=== PATIENT | male | born 1950 | race Caucasian/White ===

== ENCOUNTER 2018-03-29 10:59 | Inpatient (IN) | payer OTHER ==
[~2018-03-29] VITALS: Ht 172.7 cm; Wt 106.7 kg
[2018-03-29] MEDS ORDERED: SODIUM CHLORIDE FLUSH 10ML SYR IVF ONE (11:30)
[2018-03-29 11:42] LABS: BASOPHILS # (AUTO) 0.03 x10^3/uL (0-0.1); BASOPHILS % (AUTO) 1 % (0-1); EOSINOPHILS # (AUTO) 0.22 x10^3/uL (0-0.4); EOSINOPHILS % (AUTO) 3 % (1-7); LYMPHOCYTES # (AUTO) 1.67 x10^3/uL (1-3.4); LYMPHOCYTES % (AUTO) 25 % (22-44); MD NO; MEAN CORPUSCULAR HEMOGLOBIN 32.6 pg (27.5-34.5); MEAN CORPUSCULAR HGB CONC 34.7 g/dL (33.2-36.2); MEAN PLATELET VOLUME 8.5 fL (7.4-10.4); MONOCYTES # (AUTO) 0.61 x10^3/uL (0.2-0.8); MONOCYTES % (AUTO) 9 % (2-9); NEUTROPHILS # (AUTO) 4.29 x10^3/uL (1.8-6.8); NEUTROPHILS % (AUTO) 63 % (42-75); PLATELET COUNT 117 x10^3/uL (130-400); RED BLOOD COUNT 4.05 x10^6/uL (4.38-5.82); RED CELL DISTRIBUTION WIDTH 14.8 % (9.4-14.8)
[2018-03-29 11:58] LABS: ALBUMIN 3.1 g/dL (3.4-5.0); ANION GAP 8 mmol/L (5-15); CALCIUM 9.4 mg/dL (8.5-10.1); CHLORIDE 112 mmol/L (98-107); CREATININE 0.85 mg/dL (0.7-1.3)
[2018-03-29 12:05] LABS: INTERNATIONAL NORMALIZED RATIO 1.11 (0.93-1.1); PROTHROMBIN TIME 11.5 Seconds (9.6-11.5)
[2018-03-29] MEDS ORDERED: folic acid PO (12:15)
[2018-03-29] MEDS ORDERED: AMLO1TAB80 PO (12:15)
[2018-03-29] MEDS ORDERED: MULT-224 PO (12:15)
[2018-03-29] MEDS ORDERED: THIA250T4 PO (12:15)
[2018-03-29] MEDS ORDERED: slow mag PO (12:15)
[2018-03-29] MEDS ORDERED: NADO20TA PO (12:15)
[2018-03-29] MEDS ORDERED: [UNRECOGNIZED DRUG - OTHER] PO (12:15)
[2018-03-29] MEDS ORDERED: CHOL5000 PO (12:15)
[2018-03-29] MEDS ORDERED: NAPR-850 PO (12:15)
[2018-03-29] MEDS ORDERED: ACET-1600 PO (12:16)
[2018-03-29] MEDS ORDERED: hydrALAzine 20 MG/ML, 1ML IVPush PRN (13:00)
[2018-03-29] MEDS ORDERED: ONDANSETRON 2MG/ML, 2ML IVPush PRN (13:00)
[2018-03-29] MEDS ORDERED: ENALAPRILAT 1.25 MG/ML, 2ML IVPush PRN (13:00)
[2018-03-29] MEDS ORDERED: LABETALOL 5MG/ML, 20ML IVPush PRN (13:00)
[2018-03-29] MEDS ORDERED: PROMETHAZINE 25 MG/ML, 1ML IM PRN (13:00)
[2018-03-29] MEDS ORDERED: METOCLOPRAMIDE 5 MG/ML, 2ML IVPush PRN (13:00)
[2018-03-29] MEDS ORDERED: ONDANSETRON ODT 4 MG PO PRN (13:00)
[2018-03-29 13:48] VITALS: BP_SYST 120; BP_SYST 20; BP_DIAS 69
[2018-03-29] MEDS: NS + 20MEQ KCL 1,000 ML IV SCH (18:18)
[2018-03-29] MEDS ORDERED: GOLYTELY 4,000ML ORAL.SOL PO ONE (20:00)
[2018-03-29] MEDS: ACETAMINOPHEN 500 MG TABLET PO SCH (20:20)
[2018-03-29 20:25] VITALS: BP 126/77
[2018-03-29] MEDS: NADOLOL 20 MG HOMEMEDPO SCH (20:38)
[2018-03-29] MEDS ORDERED: OLMESARTAN MED HOMEMEDPO SCH (21:00)
[2018-03-29] MEDS ORDERED: AMLODIPINE BES HOMEMEDPO SCH (21:00)
[2018-03-29] MEDS ORDERED: CHOLECALCIFEROL 1,000 UNIT TABLET PO SCH (21:00)
[2018-03-30] MEDS: NS + 20MEQ KCL 1,000 ML IV SCH ×2 (00:08→08:25)
[2018-03-30 01:35] VITALS: BP 124/72
[2018-03-30 02:23] LABS: MEAN CORPUSCULAR HEMOGLOBIN 33.1 pg (27.5-34.5); MEAN CORPUSCULAR VOLUME 94.4 fL (81-97); RED BLOOD COUNT 3.46 x10^6/uL (4.38-5.82); RED CELL DISTRIBUTION WIDTH 14.8 % (9.4-14.8)
[2018-03-30 02:30] LABS: ALANINE AMINOTRANSFERASE 24 U/L (12-78); ALBUMIN 2.9 g/dL (3.4-5.0); ANION GAP 7 mmol/L (5-15); CALCIUM 9.3 mg/dL (8.5-10.1); CHLORIDE 115 mmol/L (98-107)
[2018-03-30 02:32] LABS: ALKALINE PHOSPHATASE 66 U/L (45-117); BILIRUBIN,TOTAL 1.2 mg/dL (0.2-1.0); TOTAL PROTEIN 5.5 g/dL (6.4-8.2)
[2018-03-30 02:35] LABS: BASOPHILS # (AUTO) 0.01 x10^3/uL (0-0.1); BASOPHILS % (AUTO) 0 % (0-1); EOSINOPHILS # (AUTO) 0.19 x10^3/uL (0-0.4); EOSINOPHILS % (AUTO) 4 % (1-7); LYMPHOCYTES # (AUTO) 1.59 x10^3/uL (1-3.4); LYMPHOCYTES % (AUTO) 34 % (22-44); MD SCAN; MEAN PLATELET VOLUME 8.4 fL (7.4-10.4); MONOCYTES # (AUTO) 0.39 x10^3/uL (0.2-0.8); MONOCYTES % (AUTO) 8 % (2-9); NEUTROPHILS # (AUTO) 2.49 x10^3/uL (1.8-6.8); NEUTROPHILS % (AUTO) 53 % (42-75); PLATELET COUNT 79 x10^3/uL (130-400)
[2018-03-30] MEDS ORDERED: GOLYTELY 4,000ML ORAL.SOL PO ONE (06:00)
[2018-03-30 06:47] VITALS: BP 144/82
[2018-03-30] MEDS ORDERED: PANTOPRAZOLE 40 MG IV IVPush SCH (07:30)
[2018-03-30] MEDS: NADOLOL 20 MG HOMEMEDPO SCH ×2 (08:40→09:36)
[2018-03-30] MEDS: ACETAMINOPHEN 500 MG TABLET PO SCH (08:40)
[2018-03-30] MEDS ORDERED: THIAMINE 100MG TABLET PO SCH (09:00)
[2018-03-30] MEDS ORDERED: MULTIVITAMIN 1 TABLET PO SCH (09:00)
[2018-03-30] MEDS ORDERED: FENTANYL PF 100 MCG/2ML ONE (09:55)
[2018-03-30] MEDS ORDERED: MIDAZOLAM 1 MG/ML, 5ML ONE (09:55)
[2018-03-30] MEDS ORDERED: EPINEPHRINE SYRINGE 0.1 MG/ML, 10ML ONE (12:34)
[2018-03-30 14:18] VITALS: BP 130/61
== END 2018-03-30 18:09 | disposition home or self-care (01) | DRG 920 ==
LOC: ED 12:34 → EDIP 12:35 → ED 12:46 → 3NE 13:42
PROVIDERS: ADMIT Hospitalist; ATTEND Hospitalist
PROC: 0DBL8ZZ Excision of Transverse Colon, Via Natural or Artificial Opening Endoscopic (ICD-10-PCS; 2018-03-30)
PROC: 0DBH8ZZ Excision of Cecum, Via Natural or Artificial Opening Endoscopic (ICD-10-PCS; 2018-03-30)
PROC: 0W3P8ZZ Control Bleeding in Gastrointestinal Tract, Via Natural or Artificial Opening Endoscopic (ICD-10-PCS; 2018-03-30)
PROC: 3E0H8GC Introduction of Other Therapeutic Substance into Lower GI, Via Natural or Artificial Opening Endoscopic (ICD-10-PCS; 2018-03-30)
PROC: 0DBK8ZZ Excision of Ascending Colon, Via Natural or Artificial Opening Endoscopic (ICD-10-PCS; principal; 2018-03-30 11:00)
DX: K91.840 Postprocedural hemorrhage of a digestive system organ or structure following a digestive system procedure (principal); K76.6 Portal hypertension; K63.3 Ulcer of intestine; D69.6 Thrombocytopenia, unspecified; D64.9 Anemia, unspecified; E66.9 Obesity, unspecified; I10 Essential (primary) hypertension; I86.8 Varicose veins of other specified sites; K57.30 Diverticulosis of large intestine without perforation or abscess without bleeding; K63.5 Polyp of colon; K64.4 Residual hemorrhoidal skin tags; K55.20 Angiodysplasia of colon without hemorrhage; N40.0 Benign prostatic hyperplasia without lower urinary tract symptoms; Y83.8 Other surgical procedures as the cause of abnormal reaction of the patient, or of later complication, without mention of misadventure at the time of the procedure; Y92.89 Other specified places as the place of occurrence of the external cause; Z80.0 Family history of malignant neoplasm of digestive organs; Z86.010 Personal history of colon polyps; Z68.35 Body mass index [BMI] 35.0-35.9, adult
CPT/HCPCS: 36415; 80048; 80053; 82040; 83735; 84100; 85014; 85018; 85025; 85610; 85730; 86850; 86900; 88305; 99152; 99153; 99285; J2250; J3010; J3480; C9113

== ENCOUNTER 2018-10-28 12:42 | Inpatient (IN) | payer OTHER ==
[~2018-10-28] VITALS: Ht 172.7 cm; Wt 101.6 kg
[~2018-10-28 12:42] MED LIST: ACET-1600 PO; AMLO1TAB80 PO; CHOL5000 PO; MULT-224 PO; NADO20TA PO; NAPR-850 PO; THIA250T4 PO; [UNRECOGNIZED DRUG - OTHER] PO; folic acid PO; slow mag PO
[2018-10-28] MEDS ORDERED: SODIUM CHLORIDE FLUSH 10ML SYR IVF ONE ×2 (13:00→15:30)
[2018-10-28 13:30] LABS: INTERNATIONAL NORMALIZED RATIO 1.17 (0.93-1.1); PROTHROMBIN TIME 12.3 Seconds (9.6-11.5)
[2018-10-28 13:31] LABS: ALANINE AMINOTRANSFERASE 28 U/L (12-78); ALBUMIN 3.2 g/dL (3.4-5.0); ANION GAP 6 mmol/L (5-15); CALCIUM 9.7 mg/dL (8.5-10.1); CHLORIDE 111 mmol/L (98-107)
[2018-10-28 13:32] LABS: MEAN CORPUSCULAR HEMOGLOBIN 32.3 pg (27.5-34.5); MEAN CORPUSCULAR HGB CONC 34.9 g/dL (33.2-36.2); MEAN CORPUSCULAR VOLUME 92.6 fL (81-97); MEAN PLATELET VOLUME 8.8 fL (7.4-10.4); PLATELET COUNT 122 x10^3/uL (130-400); RED BLOOD COUNT 3.97 x10^6/uL (4.38-5.82); RED CELL DISTRIBUTION WIDTH 14.6 % (9.4-14.8)
[2018-10-28 13:33] LABS: ALKALINE PHOSPHATASE 71 U/L (45-117); BASOPHILS # (AUTO) 0.03 x10^3/uL (0-0.1); BASOPHILS % (AUTO) 0 % (0-1); BILIRUBIN,TOTAL 1.4 mg/dL (0.2-1.0); EOSINOPHILS % (AUTO) 2 % (1-7); LYMPHOCYTES # (AUTO) 1.84 x10^3/uL (1-3.4); LYMPHOCYTES % (AUTO) 22 % (22-44); MD NO; MONOCYTES # (AUTO) 0.84 x10^3/uL (0.2-0.8); MONOCYTES % (AUTO) 10 % (2-9); NEUTROPHILS # (AUTO) 5.55 x10^3/uL (1.8-6.8); NEUTROPHILS % (AUTO) 66 % (42-75); TOTAL PROTEIN 6.2 g/dL (6.4-8.2)
[2018-10-28] MEDS ORDERED: PANTOPRAZOLE 80 MG in SODIUM CHLORIDE 0.9% 100 ML IV SCH (15:02)
[2018-10-28] MEDS ORDERED: PANTOPRAZOLE 80 MG in SODIUM CHLORIDE 0.9% 50 ML IVPB ONE (15:02)
[2018-10-28] MEDS ORDERED: OCTREOTIDE 500 MCG in SODIUM CHLORIDE 0.9% 249 ML IV PRN (15:20)
[2018-10-28] MEDS ORDERED: OCTREOTIDE 100MCG/ML, 1ML (0.1MG/ML) IV ONE (15:30)
[2018-10-28] MEDS ORDERED: SODIUM CHLORIDE 0.9% 1,000ML IVBOLUS ONE (15:30)
[2018-10-28] MEDS ORDERED: CEFTRIAXONE PMX 1GM/50ML 50 ML IV ONE (15:30)
[2018-10-28] MEDS ORDERED: LOVA20TA2 PO (16:08)
[2018-10-28 16:30] VITALS: BP 153/77
[2018-10-28] MEDS ORDERED: ENALAPRILAT 1.25 MG/ML, 2ML IVPush PRN (16:30)
[2018-10-28] MEDS: PANTOPRAZOLE 80 MG in SODIUM CHLORIDE 0.9% 100 ML IV SCH (16:30)
[2018-10-28] MEDS ORDERED: POLYETHYLENE GLYCOL 17 GM PACKET PO PRN (16:30)
[2018-10-28] MEDS ORDERED: ONDANSETRON ODT 4 MG PO PRN (16:30)
[2018-10-28] MEDS ORDERED: hydrALAzine 20 MG/ML, 1ML IVPush PRN (16:30)
[2018-10-28] MEDS ORDERED: BISACODYL 10 MG SUPP PR PRN (16:30)
[2018-10-28] MEDS ORDERED: DOCUSATE 100 MG CAPSULE PO PRN (16:30)
[2018-10-28] MEDS ORDERED: ONDANSETRON 2MG/ML, 2ML IVPush PRN (16:30)
[2018-10-28] MEDS ORDERED: CEFTRIAXONE PMX 1GM/50ML 50 ML IV SCH (16:30)
[2018-10-28] MEDS ORDERED: OCTREOTIDE 500 MCG in SODIUM CHLORIDE 0.9% 249 ML IV SCH (16:30)
[2018-10-28] MEDS ORDERED: ACETAMINOPHEN 325 MG TABLET PO PRN (16:30)
[2018-10-28 16:39] LABS: MICROSCOPIC NOT IND
[2018-10-28 16:50] VITALS: BP 155/80
[2018-10-28 16:54] LABS: CULTURE INDICATED? NO
[2018-10-28 20:00] VITALS: BP 130/75
[2018-10-29] MEDS: PANTOPRAZOLE 80 MG in SODIUM CHLORIDE 0.9% 100 ML IV SCH ×2 (00:51→14:30)
[2018-10-29 01:07] VITALS: BP 132/76
[2018-10-29 05:59] LABS: CHLORIDE 113 mmol/L (98-107)
[2018-10-29 06:13] LABS: BASOPHILS # (AUTO) 0.02 x10^3/uL (0-0.1); BASOPHILS % (AUTO) 1 % (0-1); EOSINOPHILS # (AUTO) 0.12 x10^3/uL (0-0.4); EOSINOPHILS % (AUTO) 4 % (1-7); LYMPHOCYTES # (AUTO) 1.03 x10^3/uL (1-3.4); LYMPHOCYTES % (AUTO) 30 % (22-44); MD SCAN; MEAN CORPUSCULAR HEMOGLOBIN 31.5 pg (27.5-34.5); MEAN CORPUSCULAR HGB CONC 34.1 g/dL (33.2-36.2); MEAN CORPUSCULAR VOLUME 92.4 fL (81-97); MEAN PLATELET VOLUME 8.5 fL (7.4-10.4); MONOCYTES # (AUTO) 0.31 x10^3/uL (0.2-0.8); MONOCYTES % (AUTO) 9 % (2-9); NEUTROPHILS # (AUTO) 1.98 x10^3/uL (1.8-6.8); NEUTROPHILS % (AUTO) 57 % (42-75); PLATELET COUNT 68 x10^3/uL (130-400); RED BLOOD COUNT 3.57 x10^6/uL (4.38-5.82); RED CELL DISTRIBUTION WIDTH 14.7 % (9.4-14.8)
[2018-10-29 06:28] LABS: ALANINE AMINOTRANSFERASE 29 U/L (12-78); ALBUMIN 3.1 g/dL (3.4-5.0); ALKALINE PHOSPHATASE 68 U/L (45-117); ANION GAP 8 mmol/L (5-15); BILIRUBIN,TOTAL 1.5 mg/dL (0.2-1.0); CALCIUM 8.9 mg/dL (8.5-10.1); CREATININE 0.69 mg/dL (0.7-1.3); TOTAL PROTEIN 5.9 g/dL (6.4-8.2)
[2018-10-29 06:32] LABS: FOLATE LEVEL > 20.0 ng/mL (3.1-17.5)
[2018-10-29 07:53] VITALS: BP 149/76
[2018-10-29] MEDS ORDERED: PROPOFOL 10 MG/ML, 20ML ONE (11:44)
[2018-10-29] MEDS ORDERED: ONDANSETRON ODT 8 MG PO PRN (12:30)
[2018-10-29] MEDS ORDERED: LIDOCAINE 2% VISCOUS 15 ML UDC PO PRN (12:30)
[2018-10-29] MEDS ORDERED: SUCRALFATE 1 GM/10 ML UDC PO SCH (12:30)
[2018-10-29] MEDS ORDERED: ACETAMINOPHEN 325 MG TABLET PO PRN (12:30)
[2018-10-29] MEDS ORDERED: ONDANSETRON 2MG/ML, 2ML IV PRN (12:30)
[2018-10-29] MEDS ORDERED: OXYcodone 5 MG/5 ML ORAL.SOL UDC PO PRN (12:30)
[2018-10-29 13:08] VITALS: BP 167/91
[2018-10-29] MEDS ORDERED: SUCR1ORA5 PO (15:24)
== END 2018-10-29 16:35 | disposition home or self-care (01) | DRG 432 ==
LOC: OR 15:45 → EDIP 16:04 → 4EST 16:23 → DCLOUNGE 10-29 16:22
PROVIDERS: ADMIT Internal Medicine; ATTEND Internal Medicine
PROC: 0DB68ZX Excision of Stomach, Via Natural or Artificial Opening Endoscopic, Diagnostic (ICD-10-PCS; 2018-10-29)
PROC: 06L38CZ Occlusion of Esophageal Vein with Extraluminal Device, Via Natural or Artificial Opening Endoscopic (ICD-10-PCS; principal; 2018-10-29 13:00)
DX: K70.30 Alcoholic cirrhosis of liver without ascites (principal); I85.11 Secondary esophageal varices with bleeding; E44.1 Mild protein-calorie malnutrition; D62 Acute posthemorrhagic anemia; K76.6 Portal hypertension; D69.6 Thrombocytopenia, unspecified; I86.4 Gastric varices; K31.89 Other diseases of stomach and duodenum; K25.9 Gastric ulcer, unspecified as acute or chronic, without hemorrhage or perforation; K29.80 Duodenitis without bleeding; K31.7 Polyp of stomach and duodenum; F10.10 Alcohol abuse, uncomplicated; I10 Essential (primary) hypertension; Z80.0 Family history of malignant neoplasm of digestive organs; Z86.010 Personal history of colon polyps; Z87.11 Personal history of peptic ulcer disease; Z68.34 Body mass index [BMI] 34.0-34.9, adult
CPT/HCPCS: 36415; 80053; 81003; 82105; 82140; 82306; 82607; 82746; 83735; 84100; 84425; 84590; 84630; 85025; 85610; 85730; 86706; 88305; 93005; 96365; 99285; G0378; J0696; J2354; J2704; C9113; J7030; J7050

== ENCOUNTER → 2019-03-11 | Outpatient (CLI) | payer MEDICARE ==
[~2019-03-11] MED LIST changes: +LOVA20TA2 PO; -MULT-224 PO; +MULT-642 PO; +SUCR1ORA5 PO
== END | disposition home or self-care (01) ==
LOC: CVU 09:37
PROVIDERS: ATTEND Internal Medicine Cardiovascular Disease
DX: I70.0 Atherosclerosis of aorta (principal); I87.2 Venous insufficiency (chronic) (peripheral); D69.6 Thrombocytopenia, unspecified; R06.02 Shortness of breath
CPT/HCPCS: 93922

== ENCOUNTER → 2019-04-15 | Outpatient (CLI) | payer MEDICARE ==
[~2019-04-15] MED LIST changes: +REGADENOSON 0.4 MG/5 ML SYRINGE ONE; -THIA250T4 PO; +THIA250T7 PO
== END | disposition home or self-care (01) ==
LOC: CFH 06:49
PROVIDERS: ATTEND Internal Medicine Cardiovascular Disease
DX: I08.0 Rheumatic disorders of both mitral and aortic valves (principal); I70.0 Atherosclerosis of aorta; I25.10 Atherosclerotic heart disease of native coronary artery without angina pectoris; D69.6 Thrombocytopenia, unspecified
CPT/HCPCS: 75571; 78452; 93017; 93306; A9502; J2785

== ENCOUNTER 2019-06-24 15:16 | Inpatient (IN) | payer MEDICARE ==
[~2019-06-24] VITALS: Ht 172.7 cm; Wt 98.2 kg
[~2019-06-24 15:16] MED LIST changes: -REGADENOSON 0.4 MG/5 ML SYRINGE ONE
--- NOTE | 2019-06-24 15:35 | NUR ---
PT A&OX4, RESP EVEN & UNLABORED, SPEECH CLEAR, SKIN WNL. SPOUSE IN ROOM. PER SPOUSE, BLOODY DIARRHEA STARTED ABOUT 1800 LAST NOC, HAS BEEN HAVING FREQUENT BM'S, VOMITED X2 LAST NOC (BLACK). LAST ORAL INTAKE: 1030 TODAY - [place], 3 SALTINE CRACKERS. NO MEDS TAKEN FOR SX.
[2019-06-24] MEDS ORDERED: MAGN400T36 PO (15:39)
[2019-06-24] MEDS ORDERED: METO25TA35 PO (15:39)
[2019-06-24] MEDS ORDERED: ATOR40TA78 PO (15:42)
[2019-06-24] MEDS ORDERED: OXYB5TAB33 PO (15:42)
[2019-06-24] MEDS ORDERED: AMLO-150 PO (15:42)
[2019-06-24] MEDS ORDERED: TAMS-11 PO (15:42)
[2019-06-24] MEDS ORDERED: FOLI0.8T2 PO (15:42)
[2019-06-24] MEDS ORDERED: UBID100C41 PO (15:42)
--- NOTE | 2019-06-24 15:44 | NUR ---
AMBULATORY TO & FROM ROOM BR. UNABLE TO PROVIDE STOOL SPECIMEN IN COLLECTION HAT - MISSED HAT. SMALL BLACK STOOL PARTICLES IN TOILET.
--- NOTE | 2019-06-24 15:51 | NUR ---
DR ECHOLS BS FOR EXAM
[2019-06-24] MEDS ORDERED: OCTREOTIDE 500 MCG in SODIUM CHLORIDE 0.9% 249 ML IV PRN (15:56)
[2019-06-24] MEDS ORDERED: PANTOPRAZOLE 80 MG in SODIUM CHLORIDE 0.9% 50 ML IVPB ONE (15:56)
[2019-06-24] MEDS ORDERED: PANTOPRAZOLE 80 MG in SODIUM CHLORIDE 0.9% 100 ML IV SCH (15:56)
[2019-06-24] MEDS ORDERED: SODIUM CHLORIDE FLUSH 10ML SYR IVF ONE (16:00)
[2019-06-24] MEDS ORDERED: OCTREOTIDE 100MCG/ML, 1ML (0.1MG/ML) IV ONE (16:00)
--- NOTE | 2019-06-24 16:35 | NUR ---
PT AMBULATORY TO & FROM ROOM BR W/OUT INCIDENT.
--- NOTE | 2019-06-24 16:37 | NUR ---
LAB BS. PROTONIX BOLUS HUNG, INFUSING AT 200ML/HR VIA PUMP. IV SITE PATENT.
[2019-06-24 16:51] LABS: BASOPHILS # (AUTO) 0.04 x10^3/uL (0-0.1); BASOPHILS % (AUTO) 1 % (0-1); EOSINOPHILS # (AUTO) 0.15 x10^3/uL (0-0.4); EOSINOPHILS % (AUTO) 2 % (1-7); LYMPHOCYTES # (AUTO) 1.44 x10^3/uL (1-3.4); LYMPHOCYTES % (AUTO) 17 % (22-44); MD NO; MEAN CORPUSCULAR HEMOGLOBIN 30.9 pg (27.5-34.5); MEAN CORPUSCULAR HGB CONC 33.8 g/dL (33.2-36.2); MEAN CORPUSCULAR VOLUME 91.4 fL (81-97); MEAN PLATELET VOLUME 8.4 fL (7.4-10.4); MONOCYTES # (AUTO) 0.77 x10^3/uL (0.2-0.8); MONOCYTES % (AUTO) 9 % (2-9); NEUTROPHILS # (AUTO) 6.08 x10^3/uL (1.8-6.8); NEUTROPHILS % (AUTO) 72 % (42-75); PLATELET COUNT 109 x10^3/uL (130-400); RED BLOOD COUNT 4.29 x10^6/uL (4.38-5.82); RED CELL DISTRIBUTION WIDTH 14.1 % (9.4-14.8)
[2019-06-24 16:59] LABS: INTERNATIONAL NORMALIZED RATIO 1.16 (0.93-1.1); PROTHROMBIN TIME 12.1 Seconds (9.6-11.5)
[2019-06-24] MEDS ORDERED: OCTREOTIDE 100MCG/ML, 1ML (0.1MG/ML) ONE (17:00)
[2019-06-24 17:02] LABS: ALANINE AMINOTRANSFERASE 25 U/L (12-78); ALBUMIN 3.4 g/dL (3.4-5.0); ANION GAP 6 mmol/L (5-15); CALCIUM 9.4 mg/dL (8.5-10.1); CHLORIDE 113 mmol/L (98-107); CREATININE 0.86 mg/dL (0.7-1.3)
[2019-06-24 17:04] LABS: ALKALINE PHOSPHATASE 70 U/L (45-117); BILIRUBIN,TOTAL 1.7 mg/dL (0.2-1.0); TOTAL PROTEIN 6.5 g/dL (6.4-8.2)
--- NOTE | 2019-06-24 17:08 | NUR ---
DR ECHOLS SPOKE WITH DR KAYLA IVEY
--- NOTE | 2019-06-24 17:15 | NUR ---
PROTONICS DRIP INFUSING AT 10ML/HR VIA PUMP. OCTREOTIDE BOLUS GIVEN PER EMAR. OCTREOTIDE DRIP INFUSING AT 25ML/HR VIA PUMP. IV SITE PATENT. PT RESTING QUIETLY ON BED W/ SIDE RAILS UP X2, CALL LIGHT W/IN REACH, EMESIS BAG PROVIDED. SPOUSE IN ROOM.
[2019-06-24] MEDS ORDERED: METOCLOPRAMIDE 5 MG/ML, 2ML ONE (17:21)
[2019-06-24] MEDS ORDERED: METOCLOPRAMIDE 5 MG/ML, 2ML IVPush ONE (17:30)
--- NOTE | 2019-06-24 17:43 | NUR ---
PT REPORT TO ALFONSO REARDON FOR ROOM [id number]
--- NOTE | 2019-06-24 17:51 | NUR ---
REGLAN GIVEN PER EMAR
[2019-06-24 18:30] VITALS: BP 132/79
[2019-06-24] MEDS ORDERED: BISACODYL 10 MG SUPP PR PRN (18:30)
[2019-06-24] MEDS ORDERED: ONDANSETRON 2MG/ML, 2ML IVPush PRN (18:30)
[2019-06-24] MEDS ORDERED: OCTREOTIDE 500 MCG in SODIUM CHLORIDE 0.9% 249 ML IV SCH (18:30)
[2019-06-24] MEDS: SODIUM CHLORIDE FLUSH 10ML SYR IVF SCH (21:00)
[2019-06-24] MEDS: OXYBUTYNIN CHLORIDE 5 MG TABLET PO SCH (21:32)
[2019-06-24] MEDS: ATORVASTATIN 20 MG TABLET PO SCH (21:32)
[2019-06-24] MEDS: CHOLECALCIFEROL 5,000u TAB PO SCH (21:32)
[2019-06-25 01:04] VITALS: BP 144/82
[2019-06-25] MEDS: PANTOPRAZOLE 80 MG in SODIUM CHLORIDE 0.9% 100 ML IV SCH ×2 (02:40→14:21)
[2019-06-25 05:55] LABS: MEAN CORPUSCULAR HEMOGLOBIN 31.2 pg (27.5-34.5); MEAN CORPUSCULAR VOLUME 91.8 fL (81-97); MEAN PLATELET VOLUME 8.8 fL (7.4-10.4); PLATELET COUNT 67 x10^3/uL (130-400); RED BLOOD COUNT 3.63 x10^6/uL (4.38-5.82); RED CELL DISTRIBUTION WIDTH 14.4 % (9.4-14.8)
[2019-06-25 06:14] LABS: CHLORIDE 113 mmol/L (98-107)
[2019-06-25 06:22] LABS: BASOPHILS # (AUTO) 0.02 x10^3/uL (0-0.1); BASOPHILS % (AUTO) 1 % (0-1); EOSINOPHILS # (AUTO) 0.07 x10^3/uL (0-0.4); EOSINOPHILS % (AUTO) 2 % (1-7); LYMPHOCYTES # (AUTO) 1.11 x10^3/uL (1-3.4); LYMPHOCYTES % (AUTO) 29 % (22-44); MD SCAN; MONOCYTES # (AUTO) 0.38 x10^3/uL (0.2-0.8); MONOCYTES % (AUTO) 10 % (2-9); NEUTROPHILS # (AUTO) 2.28 x10^3/uL (1.8-6.8); NEUTROPHILS % (AUTO) 59 % (42-75)
[2019-06-25 06:31] LABS: ALANINE AMINOTRANSFERASE 20 U/L (12-78); ALBUMIN 3.2 g/dL (3.4-5.0); ALKALINE PHOSPHATASE 64 U/L (45-117); ANION GAP 5 mmol/L (5-15); BILIRUBIN,TOTAL 2.1 mg/dL (0.2-1.0); CALCIUM 9.2 mg/dL (8.5-10.1); TOTAL PROTEIN 5.9 g/dL (6.4-8.2)
[2019-06-25 08:04] VITALS: BP 146/83
[2019-06-25] MEDS ORDERED: TEMPLATE NON-FORMULARY MED. (Ubidecarenone** (Co Q-10**) 300 MG) PO SCH (09:00)
[2019-06-25] MEDS ORDERED: MIDAZOLAM 1 MG/ML, 2ML ONE (09:53)
[2019-06-25] MEDS ORDERED: FENTANYL PF 100 MCG/2ML IV PRN (10:30)
[2019-06-25] MEDS ORDERED: hydrALAzine 20 MG/ML, 1ML ONE (10:49)
[2019-06-25] MEDS: hydrALAzine 20 MG/ML, 1ML IV PRN ×2 (10:52→11:15)
[2019-06-25] MEDS ORDERED: FENTANYL PF 100 MCG/2ML ONE (11:18)
[2019-06-25] MEDS: FOLIC ACID 1 MG TABLET PO SCH (12:12)
[2019-06-25] MEDS: PANTOPROZOLE 40MG TABLET PO SCH ×2 (12:12→20:41)
[2019-06-25] MEDS: OXYBUTYNIN CHLORIDE 5 MG TABLET PO SCH ×2 (12:12→20:41)
[2019-06-25] MEDS: METOPROLOL TARTRATE 25 MG TABLET PO SCH (12:12)
[2019-06-25] MEDS: MAGNESIUM OXIDE 400 MG TABLET PO SCH (12:12)
[2019-06-25] MEDS: AMLODIPINE 10 MG TAB PO SCH (12:12)
[2019-06-25] MEDS: TAMSULOSIN 0.4 MG CAP.ER.24H PO SCH (12:12)
[2019-06-25] MEDS: THIAMINE 100MG TABLET PO SCH (12:13)
[2019-06-25] MEDS: SODIUM CHLORIDE FLUSH 10ML SYR IVF SCH ×2 (12:17→20:41)
[2019-06-25 13:23] VITALS: BP 159/91
[2019-06-25] MEDS ORDERED: PROPOFOL 10 MG/ML, 50ML ONE (15:26)
[2019-06-25 20:08] VITALS: BP 146/78
[2019-06-25] MEDS: ATORVASTATIN 20 MG TABLET PO SCH (20:41)
[2019-06-25] MEDS: CHOLECALCIFEROL 5,000u TAB PO SCH (20:41)
[2019-06-26 02:27] VITALS: BP 118/70
[2019-06-26 06:06] LABS: MEAN CORPUSCULAR HEMOGLOBIN 30.7 pg (27.5-34.5); MEAN CORPUSCULAR HGB CONC 33.8 g/dL (33.2-36.2); MEAN CORPUSCULAR VOLUME 90.8 fL (81-97); MEAN PLATELET VOLUME 8.5 fL (7.4-10.4); PLATELET COUNT 66 x10^3/uL (130-400); RED BLOOD COUNT 3.34 x10^6/uL (4.38-5.82); RED CELL DISTRIBUTION WIDTH 14.1 % (9.4-14.8)
[2019-06-26 06:18] LABS: ANION GAP 5 mmol/L (5-15); CALCIUM 8.8 mg/dL (8.5-10.1); CHLORIDE 112 mmol/L (98-107)
[2019-06-26 06:22] LABS: ALANINE AMINOTRANSFERASE 25 U/L (12-78); ALKALINE PHOSPHATASE 61 U/L (45-117); BILIRUBIN,TOTAL 1.3 mg/dL (0.2-1.0); CREATININE 0.89 mg/dL (0.7-1.3); TOTAL PROTEIN 5.8 g/dL (6.4-8.2)
[2019-06-26 06:37] LABS: BASOPHILS # (AUTO) 0.01 x10^3/uL (0-0.1); BASOPHILS % (AUTO) 0 % (0-1); EOSINOPHILS # (AUTO) 0.06 x10^3/uL (0-0.4); EOSINOPHILS % (AUTO) 2 % (1-7); LYMPHOCYTES # (AUTO) 0.81 x10^3/uL (1-3.4); LYMPHOCYTES % (AUTO) 19 % (22-44); MD SCAN; MONOCYTES # (AUTO) 0.37 x10^3/uL (0.2-0.8); MONOCYTES % (AUTO) 9 % (2-9); NEUTROPHILS # (AUTO) 2.97 x10^3/uL (1.8-6.8); NEUTROPHILS % (AUTO) 70 % (42-75)
[2019-06-26 07:46] VITALS: BP 136/78
[2019-06-26] MEDS: FOLIC ACID 1 MG TABLET PO SCH (09:05)
[2019-06-26] MEDS: OXYBUTYNIN CHLORIDE 5 MG TABLET PO SCH (09:05)
[2019-06-26] MEDS: TAMSULOSIN 0.4 MG CAP.ER.24H PO SCH (09:05)
[2019-06-26] MEDS: METOPROLOL TARTRATE 25 MG TABLET PO SCH (09:05)
[2019-06-26] MEDS: THIAMINE 100MG TABLET PO SCH (09:05)
[2019-06-26] MEDS: AMLODIPINE 10 MG TAB PO SCH (09:05)
[2019-06-26] MEDS ORDERED: OMEP-110 PO (09:06)
[2019-06-26] MEDS: SODIUM CHLORIDE FLUSH 10ML SYR IVF SCH (09:07)
[2019-06-26] MEDS: MAGNESIUM OXIDE 400 MG TABLET PO SCH (09:13)
[2019-06-26] MEDS: PANTOPROZOLE 40MG TABLET PO SCH (09:13)
[2019-07-16] MEDS ORDERED: ATOR10TA PO (01:04)
[2019-07-16] MEDS ORDERED: DIPH50CA41 PO (01:04)
[2019-07-16] MEDS ORDERED: GABA300C10 PO (01:04)
[2019-07-18] MEDS ORDERED: LEVO750T6 PO (10:43)
== END 2019-06-26 10:22 | disposition home or self-care (01) | DRG 432 ==
LOC: ED 16:20 → EDIP 17:15 → 3NE 18:22 → DCLOUNGE 06-26 10:22
PROVIDERS: ADMIT Internal Medicine; ATTEND Internal Medicine
PROC: 06L38CZ Occlusion of Esophageal Vein with Extraluminal Device, Via Natural or Artificial Opening Endoscopic (ICD-10-PCS; principal; 2019-06-25 16:15)
DX: K70.30 Alcoholic cirrhosis of liver without ascites (principal); I85.11 Secondary esophageal varices with bleeding; K76.6 Portal hypertension; D62 Acute posthemorrhagic anemia; D69.59 Other secondary thrombocytopenia; E78.5 Hyperlipidemia, unspecified; F10.10 Alcohol abuse, uncomplicated; Y90.9 Presence of alcohol in blood, level not specified; I10 Essential (primary) hypertension; I27.20 Pulmonary hypertension, unspecified; K31.89 Other diseases of stomach and duodenum; N40.0 Benign prostatic hyperplasia without lower urinary tract symptoms; Z87.11 Personal history of peptic ulcer disease
CPT/HCPCS: 36415; 80053; 85014; 85018; 85025; 85610; 85730; 86850; 86900; 93005; 96374; 99285; G0378; J2250; J2354; J2704; J3010; C9113; J0360; J2765; J7050

== ENCOUNTER 2019-09-30 09:13 | Outpatient (CLI) | payer MEDICARE ==
[~2019-09-30 09:13] MED LIST changes: +AMLO-150 PO; +ATOR10TA PO; +ATOR40TA78 PO; +DIPH50CA41 PO; +FOLI0.8T2 PO; +GABA300C10 PO; +LEVO750T6 PO; +MAGN400T36 PO; +METO25TA35 PO; +OMEP-110 PO; +OXYB5TAB33 PO; +TAMS-11 PO; +UBID100C41 PO
== END 2019-09-30 23:59 | disposition home or self-care (01) ==
LOC: CFH 09:13
PROVIDERS: ATTEND Internal Medicine Gastroenterology
DX: K70.30 Alcoholic cirrhosis of liver without ascites (principal); I85.00 Esophageal varices without bleeding; F10.21 Alcohol dependence, in remission; Z80.0 Family history of malignant neoplasm of digestive organs
CPT/HCPCS: 76705

== ENCOUNTER → 2019-10-19 | Outpatient (CLI) | payer MEDICARE ==
[~2019-10-19] MED LIST changes: +CA C1TAB38 PO
[2019-10-19 16:39] LABS: ALBUMIN 3.6 g/dL (3.4-5.0); CHLORIDE 109 mmol/L (98-107); INTERNATIONAL NORMALIZED RATIO 1.11 (0.93-1.1); PROTHROMBIN TIME 11.6 Seconds (9.6-11.5)
[2019-10-19 16:42] LABS: ALANINE AMINOTRANSFERASE 37 U/L (12-78); ALKALINE PHOSPHATASE 89 U/L (45-117); ANION GAP 5 mmol/L (5-15); BILIRUBIN,TOTAL 0.7 mg/dL (0.2-1.0); CREATININE 0.83 mg/dL (0.7-1.3); TOTAL PROTEIN 6.9 g/dL (6.4-8.2)
[2019-10-19 16:56] LABS: MEAN CORPUSCULAR HEMOGLOBIN 27.1 pg (27.5-34.5); MEAN CORPUSCULAR HGB CONC 32.7 g/dL (33.2-36.2); MEAN PLATELET VOLUME 8.8 fL (7.4-10.4); PLATELET COUNT 88 x10^3/uL (130-400); RED BLOOD COUNT 5.02 x10^6/uL (4.38-5.82)
[2019-10-19 16:59] LABS: HEMOGLOBIN A1C 5.2 % (4.2-6.3)
[2019-10-19 19:09] LABS: BASOPHILS # (AUTO) 0.03 x10^3/uL (0-0.1); BASOPHILS % (AUTO) 1 % (0-1); EOSINOPHILS # (AUTO) 0.13 x10^3/uL (0-0.4); EOSINOPHILS % (AUTO) 3 % (1-7); LYMPHOCYTES # (AUTO) 0.66 x10^3/uL (1-3.4); LYMPHOCYTES % (AUTO) 15 % (22-44); MD MORPH REVIEW ONLY; MONOCYTES # (AUTO) 0.38 x10^3/uL (0.2-0.8); MONOCYTES % (AUTO) 9 % (2-9); NEUTROPHILS # (AUTO) 3.22 x10^3/uL (1.8-6.8); NEUTROPHILS % (AUTO) 73 % (42-75)
[2019-10-19 19:14] LABS: <PLATELET ESTIMATE> DECREASED; <PLT MORPHOLOGY> NORMAL PLT MORPH; ANISOCYTOSIS 1+; HYPOCHROMIA 1+; POLYCHROMASIA 1+
== END | disposition home or self-care (01) ==
LOC: STAR 15:14
PROVIDERS: ATTEND Orthopaedic Surgery
DX: Z01.818 Encounter for other preprocedural examination (principal); M16.0 Bilateral primary osteoarthritis of hip; M25.552 Pain in left hip; M25.551 Pain in right hip; Z88.6 Allergy status to analgesic agent
CPT/HCPCS: 36415; 80053; 83036; 85025; 85610; 85730; 87081; 87389; 93005

== ENCOUNTER 2019-10-26 11:32 | Inpatient (IN) | payer MEDICARE ==
[~2019-10-26] VITALS: Ht 172.7 cm; Wt 100.7 kg
[2019-10-26 12:13] VITALS: BP 132/81
[2019-10-26] MEDS ORDERED: LACTATED RINGERS 1,000 ML IV SCH (12:17)
[2019-10-26] MEDS ORDERED: KETOROLAC 60 MG/2 ML ONE (13:40)
[2019-10-26] MEDS ORDERED: ROPIvacaine/PF 0.2%, 20 ML ONE (13:40)
[2019-10-26] MEDS ORDERED: TRANEXAMIC ACID 100 MG/ML, 10ML ONE ×4 (13:40)
[2019-10-26] MEDS ORDERED: EPINEPHRINE 1 MG/ML, 1ML ONE (13:41)
[2019-10-26] MEDS ORDERED: SODIUM CHLORIDE 0.9% 100 ML ONE (13:41)
[2019-10-26] MEDS ORDERED: MIDAZOLAM 1 MG/ML, 2ML ONE (13:44)
[2019-10-26] MEDS ORDERED: FENTANYL PF 250 MCG/5ML ONE (13:44)
[2019-10-26] MEDS ORDERED: NEOSTIGMINE 1 MG/ML, 10ML ONE (14:19)
[2019-10-26] MEDS ORDERED: DEXAMETHASONE 4 MG/ML, 1ML ONE (14:29)
[2019-10-26] MEDS ORDERED: CEFAZOLIN 1,000 MG ONE (14:32)
[2019-10-26] MEDS ORDERED: PROPOFOL 10 MG/ML, 20ML ONE (14:32)
[2019-10-26] MEDS ORDERED: ROCURONIUM 10MG/ML,5ML ONE (14:32)
[2019-10-26] MEDS ORDERED: SUCCINYLCHOLINE 20 MG/ML, 10ML ONE (14:32)
[2019-10-26] MEDS ORDERED: EPHEDRINE 50 MG/ML, 1ML ONE (14:49)
[2019-10-26] MEDS ORDERED: DIPHENHYDRAMINE 50 MG/ML, 1ML IVPush PRN (15:00)
[2019-10-26] MEDS ORDERED: hydrALAzine 20 MG/ML, 1ML IV PRN (15:00)
[2019-10-26] MEDS ORDERED: HALOPERIDOL 5 MG/ML IV PRN (15:00)
[2019-10-26] MEDS ORDERED: PROMETHAZINE 12.5 MG SUPP PR PRN (15:00)
[2019-10-26] MEDS ORDERED: DIAZEPAM 5 MG/ML, 2ML IVPush PRN (15:00)
[2019-10-26] MEDS ORDERED: MIDAZOLAM 1 MG/ML, 2ML IV PRN (15:00)
[2019-10-26] MEDS ORDERED: PROMETHAZINE 25 MG/ML, 1ML IV PRN (15:00)
[2019-10-26] MEDS ORDERED: EPHEDRINE 50 MG/ML, 1ML IVPush PRN (15:00)
[2019-10-26] MEDS ORDERED: POLYETHYLENE GLYCOL 17 GM PACKET PO PRN (15:00)
[2019-10-26] MEDS ORDERED: PSYLLIUM PACKET PO PRN (15:00)
[2019-10-26] MEDS ORDERED: HYDROmorphone 1 MG/ML, 1ML INJ IVPush PRN (15:00)
[2019-10-26] MEDS ORDERED: LABETALOL 5MG/ML, 20ML IV PRN (15:00)
[2019-10-26] MEDS ORDERED: ALUMINUM/MAG/SIMETHICONE 30 ML UDC PO PRN (15:00)
[2019-10-26] MEDS ORDERED: MEPERIDINE/PF 25MG/ML,1ML IVPush PRN (15:00)
[2019-10-26] MEDS ORDERED: ONDANSETRON ODT 8 MG PO PRN (15:00)
[2019-10-26] MEDS ORDERED: DIPHENHYDRAMINE 25 MG CAPSULE PO PRN (15:00)
[2019-10-26] MEDS ORDERED: MAGNESIUM HYDROXIDE 8%, 30ML UDC PO PRN (15:00)
[2019-10-26] MEDS ORDERED: ALBUTEROL SULFATE 2.5 MG/3 ML NPPB PRN (15:00)
[2019-10-26] MEDS ORDERED: HYDROmorphone 2 MG/ML, 1ML IVPush PRN (15:00)
[2019-10-26] MEDS ORDERED: OXYcodone 5 MG/5 ML ORAL.SOL UDC PO PRN (15:00)
[2019-10-26] MEDS ORDERED: ONDANSETRON 2MG/ML, 2ML IV PRN ×2 (15:00)
[2019-10-26] MEDS ORDERED: ONDANSETRON 4 MG TABLET PO PRN (15:00)
[2019-10-26] MEDS ORDERED: ACETAMINOPHEN 650 MG/20.3 ML UDC PO PRN (15:00)
[2019-10-26] MEDS ORDERED: METOCLOPRAMIDE 10MG TABLET PO PRN (15:00)
[2019-10-26] MEDS ORDERED: TRANEXAMIC ACID 1,000 MG in SODIUM CHLORIDE 0.9% 100 ML IVPB ONE (15:00)
[2019-10-26] MEDS ORDERED: SENNA/DOCUSATE TABLET PO PRN (15:00)
[2019-10-26] MEDS ORDERED: ONDANSETRON 2MG/ML, 2ML ONE ×2 (15:22)
[2019-10-26] MEDS ORDERED: FENTANYL PF 100 MCG/2ML ONE ×2 (16:17→16:30)
[2019-10-26] MEDS ORDERED: OXYcodone 5 MG/5 ML ORAL.SOL UDC ONE (16:17)
[2019-10-26] MEDS: FENTANYL PF 100 MCG/2ML IV PRN ×4 (16:20→16:52)
[2019-10-26] MEDS: POTASSIUM CHLORIDE 20 MEQ in D5%-0.45% NACL 1,000 ML IV SCH (19:00)
[2019-10-26] MEDS: DOCUSATE 100 MG CAPSULE PO SCH (20:09)
[2019-10-26] MEDS: GABAPENTIN 300 MG CAPSULE PO SCH (20:09)
[2019-10-26] MEDS: OXYcodone IR 5MG TABLET PO PRN (20:10)
[2019-10-26 21:00] VITALS: BP 116/72
[2019-10-26] MEDS ORDERED: ASPIRIN 81 MG TABLET EC PO SCH (21:00)
[2019-10-26] MEDS ORDERED: CHOLECALCIFEROL 5,000u TAB PO SCH (21:00)
[2019-10-26] MEDS ORDERED: ATORVASTATIN 10 MG TABLET PO SCH (21:00)
[2019-10-26] MEDS: CEFAZOLIN PMX 1GM/50ML 50 ML IVPB SCH (22:42)
[2019-10-27] MEDS: POTASSIUM CHLORIDE 20 MEQ in D5%-0.45% NACL 1,000 ML IV SCH (01:42)
[2019-10-27] MEDS: OXYcodone IR 5MG TABLET PO PRN ×2 (03:04→09:11)
[2019-10-27 03:06] VITALS: BP 128/67
[2019-10-27] MEDS: CEFAZOLIN PMX 1GM/50ML 50 ML IVPB SCH (05:56)
[2019-10-27] MEDS ORDERED: DEXAMETHASONE 4 MG/ML, 1ML IVPush SCH (06:00)
[2019-10-27] MEDS ORDERED: ASPIRIN 81 MG TABLET EC PO SCH (06:00)
[2019-10-27] MEDS ORDERED: OMEPRAZOLE 20 MG CAPSULE.DR PO SCH (06:00)
[2019-10-27 07:26] VITALS: BP 124/70
[2019-10-27] MEDS ORDERED: TAMSULOSIN 0.4 MG CAP.ER.24H PO SCH (09:00)
[2019-10-27] MEDS ORDERED: METOPROLOL TARTRATE 25 MG TABLET PO SCH (09:00)
[2019-10-27] MEDS ORDERED: FOLIC ACID 1 MG TABLET PO SCH (09:00)
[2019-10-27] MEDS ORDERED: AMLODIPINE 10 MG TAB PO SCH (09:00)
[2019-10-27] MEDS ORDERED: THIAMINE 100MG TABLET PO SCH (09:00)
[2019-10-27] MEDS ORDERED: MAGNESIUM OXIDE 400 MG TABLET PO SCH (09:00)
[2019-10-27] MEDS ORDERED: MULTIVITS,STRESS FORMULA 1 TABLET PO SCH (09:00)
[2019-10-27] MEDS: DOCUSATE 100 MG CAPSULE PO SCH (09:10)
[2019-10-27] MEDS: GABAPENTIN 300 MG CAPSULE PO SCH (09:11)
== END 2019-10-27 12:30 | disposition home or self-care (01) | DRG 470 ==
LOC: ORIP 11:32 → 4NE 18:03 → DCLOUNGE 10-27 12:28
PROVIDERS: ADMIT Orthopaedic Surgery; ATTEND Orthopaedic Surgery
PROC: 0SRB06Z Replacement of Left Hip Joint with Oxidized Zirconium on Polyethylene Synthetic Substitute, Open Approach (ICD-10-PCS; principal; 2019-10-26 14:15)
DX: M16.12 Unilateral primary osteoarthritis, left hip (principal); N40.0 Benign prostatic hyperplasia without lower urinary tract symptoms; I10 Essential (primary) hypertension; E78.5 Hyperlipidemia, unspecified; Z79.899 Other long term (current) drug therapy
CPT/HCPCS: 36415; 85014; 85018; 86850; 86900; C1713; G0378; J0171; J0690; J1100; J1885; J2250; J2405; J2704; J2710; J2795; J3010; C1776; J0330; J7120

== ENCOUNTER 2020-04-01 09:49 | Outpatient (CLI) | payer MEDICARE ==
[2020-04-01] MEDS ORDERED: DIPH-423 PO (11:07)
[2020-04-01] MEDS ORDERED: TAMS-11 PO (11:07)
[2020-04-01] MEDS ORDERED: OXYB15TA18 PO (11:07)
== END 2020-04-01 23:59 | disposition home or self-care (01) ==
LOC: STAR 09:49
PROVIDERS: ATTEND Orthopaedic Surgery
DX: Z01.818 Encounter for other preprocedural examination (principal); M16.0 Bilateral primary osteoarthritis of hip; M25.551 Pain in right hip; I45.10 Unspecified right bundle-branch block; Z96.642 Presence of left artificial hip joint
CPT/HCPCS: 93005

== ENCOUNTER 2020-04-04 13:32 | Day surgery (SDC) | payer MEDICARE ==
[2020-04-01 11:19] LABS: INTERNATIONAL NORMALIZED RATIO 1.09 (0.93-1.1); PROTHROMBIN TIME 11.6 Seconds (9.6-11.5)
[2020-04-01 11:20] LABS: ALANINE AMINOTRANSFERASE 28 U/L (12-78); ALBUMIN 3.5 g/dL (3.4-5.0); ANION GAP 5 mmol/L (5-15); CALCIUM 10.2 mg/dL (8.5-10.1); CHLORIDE 109 mmol/L (98-107); CREATININE 0.99 mg/dL (0.7-1.3)
[2020-04-01 11:22] LABS: ALKALINE PHOSPHATASE 87 U/L (45-117); TOTAL PROTEIN 6.9 g/dL (6.4-8.2)
[2020-04-01 11:34] LABS: BASOPHILS # (AUTO) 0.03 x10^3/uL (0-0.1); BASOPHILS % (AUTO) 1 % (0-1); EOSINOPHILS # (AUTO) 0.11 x10^3/uL (0-0.4); EOSINOPHILS % (AUTO) 4 % (1-7); LYMPHOCYTES # (AUTO) 0.63 x10^3/uL (1-3.4); LYMPHOCYTES % (AUTO) 19 % (22-44); MD SCAN; MEAN CORPUSCULAR HEMOGLOBIN 26.1 pg (27.5-34.5); MEAN CORPUSCULAR HGB CONC 33.2 g/dL (33.2-36.2); MEAN CORPUSCULAR VOLUME 78.6 fL (81-97); MEAN PLATELET VOLUME 8.7 fL (7.4-10.4); MONOCYTES # (AUTO) 0.29 x10^3/uL (0.2-0.8); MONOCYTES % (AUTO) 9 % (2-9); NEUTROPHILS % (AUTO) 67 % (42-75); PLATELET COUNT 77 x10^3/uL (130-400); RED BLOOD COUNT 4.85 x10^6/uL (4.38-5.82); RED CELL DISTRIBUTION WIDTH 18.1 % (9.4-14.8)
[~2020-04-04] VITALS: Ht 172.7 cm; Wt 100.2 kg
[~2020-04-04 13:32] MED LIST changes: +DIPH-423 PO; +OXYB15TA18 PO
[2020-04-04] MEDS ORDERED: LACTATED RINGERS 1,000 ML IV SCH ×2 (13:45→14:03)
[2020-04-04] MEDS ORDERED: CHLORHEXIDINE 15 ML UDC MM STA (13:45)
[2020-04-04 13:54] VITALS: BP 162/74
[2020-04-04] MEDS ORDERED: ACETAMINOPHEN 500 MG TABLET PO ONE (14:30)
[2020-04-04] MEDS ORDERED: GABAPENTIN 300 MG CAPSULE PO ONE (14:30)
[2020-04-04] MEDS ORDERED: DEXAMETHASONE 4 MG/ML, 1ML ONE ×2 (15:35→17:14)
[2020-04-04] MEDS ORDERED: FENTANYL PF 250 MCG/5ML ONE (15:35)
[2020-04-04] MEDS ORDERED: PROPOFOL 10 MG/ML, 20ML ONE ×2 (15:35→17:14)
[2020-04-04] MEDS ORDERED: NEOSTIGMINE 1 MG/ML, 10ML ONE ×2 (15:35→17:14)
[2020-04-04] MEDS ORDERED: ROCURONIUM 10MG/ML,5ML ONE ×2 (15:35→17:14)
[2020-04-04] MEDS ORDERED: CEFAZOLIN 1,000 MG ONE ×2 (15:35→17:14)
[2020-04-04] MEDS ORDERED: GLYCOPYRROLATE 0.2MG/1ML, 5ML ONE ×2 (15:35→17:14)
[2020-04-04] MEDS ORDERED: SUCCINYLCHOLINE 20 MG/ML, 10ML ONE ×2 (15:35→17:14)
[2020-04-04] MEDS ORDERED: ONDANSETRON 2MG/ML, 2ML ONE ×2 (15:35→17:14)
[2020-04-04] MEDS ORDERED: SODIUM CHLORIDE 0.9% 50 ML ONE (15:38)
[2020-04-04] MEDS ORDERED: KETOROLAC 60 MG/2 ML ONE (15:38)
[2020-04-04] MEDS ORDERED: POTASSIUM CHLORIDE 20 MEQ in D5%-0.45% NACL 1,000 ML IV SCH (15:55)
[2020-04-04] MEDS ORDERED: PSYLLIUM PACKET PO PRN (16:00)
[2020-04-04] MEDS ORDERED: HYDROmorphone 1 MG/ML, 1ML INJ IVPush PRN ×2 (16:00→17:00)
[2020-04-04] MEDS ORDERED: ONDANSETRON 4 MG TABLET PO PRN (16:00)
[2020-04-04] MEDS ORDERED: DIPHENHYDRAMINE 25 MG CAPSULE PO PRN (16:00)
[2020-04-04] MEDS ORDERED: SENNA/DOCUSATE TABLET PO PRN (16:00)
[2020-04-04] MEDS ORDERED: POLYETHYLENE GLYCOL 17 GM PACKET PO PRN (16:00)
[2020-04-04] MEDS ORDERED: BISACODYL 10 MG SUPP PR PRN (16:00)
[2020-04-04] MEDS ORDERED: TRANEXAMIC ACID 1,000 MG in SODIUM CHLORIDE 0.9% 100 ML IVPB ONE ×2 (16:00→18:30)
[2020-04-04] MEDS ORDERED: MAGNESIUM HYDROXIDE 8%, 30ML UDC PO PRN (16:00)
[2020-04-04] MEDS ORDERED: KETOROLAC 30 MG/1 ML IV SCH (16:00)
[2020-04-04] MEDS ORDERED: OXYcodone IR 5MG TABLET PO PRN (16:00)
[2020-04-04] MEDS ORDERED: DEXAMETHASONE 4 MG/ML, 1ML IVPush SCH (16:00)
[2020-04-04] MEDS ORDERED: ACETAMINOPHEN 650 MG/20.3 ML UDC PO PRN (16:00)
[2020-04-04] MEDS ORDERED: ONDANSETRON 2MG/ML, 2ML IVPush PRN ×2 (16:00→17:00)
[2020-04-04] MEDS ORDERED: DIPHENHYDRAMINE 50 MG/ML, 1ML IVPush PRN (16:00)
[2020-04-04] MEDS ORDERED: PROMETHAZINE 25 MG/ML, 1ML IM PRN (16:00)
[2020-04-04] MEDS ORDERED: ALUMINUM/MAG/SIMETHICONE 30 ML UDC PO PRN (16:00)
[2020-04-04] MEDS ORDERED: EPHEDRINE 50 MG/ML, 1ML ONE (16:08)
[2020-04-04] MEDS ORDERED: LABETALOL 5MG/ML, 20ML IV PRN (17:00)
[2020-04-04] MEDS ORDERED: OXYcodone 5 MG/5 ML ORAL.SOL UDC PO PRN (17:00)
[2020-04-04] MEDS ORDERED: hydrALAzine 20 MG/ML, 1ML IV PRN (17:00)
[2020-04-04] MEDS ORDERED: FENTANYL PF 100 MCG/2ML IV PRN (17:00)
[2020-04-04] MEDS ORDERED: PROMETHAZINE 25 MG SUPP PR PRN (17:00)
[2020-04-04] MEDS ORDERED: PROMETHAZINE 25 MG/ML, 1ML IVPush PRN (17:00)
[2020-04-04] MEDS ORDERED: FENTANYL PF 100 MCG/2ML ONE (17:06)
[2020-04-04] MEDS ORDERED: SUGAMMADEX 200 MG/2 ML IVPush ONE (17:14)
[2020-04-04] MEDS ORDERED: TAMSULOSIN 0.4 MG CAP.ER.24H PO SCH (21:00)
[2020-04-04] MEDS ORDERED: DOCUSATE 100 MG CAPSULE PO SCH (21:00)
[2020-04-04] MEDS ORDERED: CHOLECALCIFEROL 5,000u TAB PO SCH (21:00)
[2020-04-04] MEDS ORDERED: ASPIRIN 81 MG TABLET EC PO SCH (21:00)
[2020-04-04] MEDS ORDERED: DIPHENHYDRAMINE 50 MG CAPSULE PO SCH (21:00)
[2020-04-04] MEDS ORDERED: AMLODIPINE 10 MG TAB PO SCH (21:00)
[2020-04-04] MEDS ORDERED: GABAPENTIN 300 MG CAPSULE PO SCH (21:00)
[2020-04-04] MEDS ORDERED: CEFAZOLIN PMX 1GM/50ML 50 ML IVPB SCH (22:00)
[2020-04-05] MEDS ORDERED: OMEPRAZOLE 20 MG CAPSULE.DR PO SCH (06:00)
[2020-04-05] MEDS ORDERED: CALCIUM CARB HOMEMEDPO SCH (09:00)
[2020-04-05] MEDS ORDERED: TAMSULOSIN 0.4 MG CAP.ER.24H PO SCH (09:00)
[2020-04-05] MEDS ORDERED: [UNRECOGNIZED DRUG - OTHER] HOMEMEDPO SCH (09:00)
[2020-04-05] MEDS ORDERED: THIAMINE 50MG TABLET PO SCH (09:00)
[2020-04-05] MEDS ORDERED: FOLIC HOMEMEDPO SCH (09:00)
[2020-04-05] MEDS ORDERED: OXYBUTYNIN CHLORIDE 5 MG TABLET PO SCH (09:00)
[2020-04-05] MEDS ORDERED: METOPROLOL TARTRATE 25 MG TAB PO SCH (09:00)
[2020-04-05] MEDS ORDERED: FOLIC ACID 1 MG TABLET PO SCH (09:00)
[2020-04-05] MEDS ORDERED: MAGNESIUM OXIDE 400 MG TABLET PO SCH (09:00)
[2020-04-05] MEDS ORDERED: VIT B HOMEMEDPO SCH (09:00)
== END 2020-04-04 20:30 | disposition home or self-care (01) ==
LOC: OR 13:32 → UNDOADMIN 15:55 → ORIP 15:55 → 4NE 18:42 → OR 20:30 → UNDODISIN 20:30
PROVIDERS: ATTEND Orthopaedic Surgery
DX: M16.11 Unilateral primary osteoarthritis, right hip (principal); S76.211A Strain of adductor muscle, fascia and tendon of right thigh, initial encounter; M25.751 Osteophyte, right hip; I10 Essential (primary) hypertension; K21.9 Gastro-esophageal reflux disease without esophagitis; I45.10 Unspecified right bundle-branch block; I44.0 Atrioventricular block, first degree; Z79.82 Long term (current) use of aspirin; Z79.01 Long term (current) use of anticoagulants; Z79.899 Other long term (current) drug therapy; Z20.828 Contact with and (suspected) exposure to other viral communicable diseases; Z96.642 Presence of left artificial hip joint; X58.XXXA Exposure to other specified factors, initial encounter; Y93.89 Activity, other specified; Y92.89 Other specified places as the place of occurrence of the external cause; Y99.8 Other external cause status
CPT/HCPCS: 27130; 36415; 72170; 80053; 83036; 85025; 85610; 85730; 86850; 86900; 87081; 87806; C1713; C1776; J0330; J0690; J1100; J1885; J2405; J2704; J2710; J3010; J7120; U0001; G0378; G0475

== ENCOUNTER 2020-06-28 13:08 | Outpatient (CLI) | payer MEDICARE ==
[2020-06-28] MEDS ORDERED: OXYB10TA26 PO (13:46)
[2020-06-28] MEDS ORDERED: TRAZ150T62 PO (13:46)
[2020-06-28] MEDS ORDERED: CELE200C PO (13:46)
== END 2020-06-28 23:59 | disposition home or self-care (01) ==
LOC: STAR 13:08
PROVIDERS: ATTEND Surgery Surgery of the Hand
DX: Z02.9 Encounter for administrative examinations, unspecified (principal)

== ENCOUNTER 2020-07-06 06:29 | Day surgery (SDC) | payer MEDICARE ==
[~2020-07-06] VITALS: Ht 172.7 cm; Wt 98.9 kg
[~2020-07-06 06:29] MED LIST changes: +CELE200C PO; +OXYB10TA26 PO; +TRAZ150T62 PO
[2020-07-06] MEDS ORDERED: LACTATED RINGERS 1,000 ML IV ONE (06:49)
[2020-07-06] MEDS ORDERED: CHLORHEXIDINE 15 ML UDC MM STA (06:49)
[2020-07-06 07:03] VITALS: BP 132/73
[2020-07-06] MEDS ORDERED: CHLORHEXIDINE 15 ML UDC ONE (07:09)
[2020-07-06] MEDS ORDERED: PLEASE ENTER ALLERGIES MC SCH (07:30)
[2020-07-06] MEDS ORDERED: PLEASE ENTER HEIGHT AND WEIGHT MC SCH (07:30)
[2020-07-06] MEDS ORDERED: hydrALAzine 20 MG/ML, 1ML IV PRN (08:00)
[2020-07-06] MEDS ORDERED: ACETAMINOPHEN 325 MG TABLET PO PRN (08:00)
[2020-07-06] MEDS ORDERED: ONDANSETRON 2MG/ML, 2ML IVPush PRN (08:00)
[2020-07-06] MEDS ORDERED: HYDROmorphone 1 MG/ML, 1ML INJ IVPush PRN (08:00)
[2020-07-06] MEDS ORDERED: PROMETHAZINE 25 MG/ML, 1ML IVPush PRN (08:00)
[2020-07-06] MEDS ORDERED: MEPERIDINE/PF 25MG/0.5ML IVPush PRN (08:00)
[2020-07-06] MEDS ORDERED: FENTANYL PF 100 MCG/2ML IV PRN (08:00)
[2020-07-06] MEDS ORDERED: OXYcodone 5 MG/5 ML ORAL.SOL UDC PO PRN (08:00)
[2020-07-06] MEDS ORDERED: LABETALOL 5MG/ML, 20ML IV PRN (08:00)
[2020-07-06] MEDS ORDERED: MIDAZOLAM 1 MG/ML, 2ML ONE (08:17)
[2020-07-06] MEDS ORDERED: FENTANYL PF 250 MCG/5ML ONE (08:18)
[2020-07-06] MEDS ORDERED: LIDOCAINE-MPF 1%, 5ML ONE (08:39)
[2020-07-06] MEDS ORDERED: BUPIVACAINE/PF 0.5% ONE (08:39)
[2020-07-06] MEDS ORDERED: PROPOFOL 10 MG/ML, 20ML ONE ×2 (08:48→09:20)
[2020-07-06] MEDS ORDERED: DEXAMETHASONE 4 MG/ML, 1ML ONE (08:48)
[2020-07-06] MEDS ORDERED: ONDANSETRON 2MG/ML, 2ML ONE (09:20)
== END 2020-07-06 11:15 | disposition home or self-care (01) ==
LOC: OUT 06:29
PROVIDERS: ATTEND Surgery Surgery of the Hand
DX: M65.331 Trigger finger, right middle finger (principal); Z11.59 Encounter for screening for other viral diseases; Z79.899 Other long term (current) drug therapy
CPT/HCPCS: 26055; 36415; 87635; J1100; J2250; J2405; J2704; J3010; J7120

== ENCOUNTER → 2020-07-13 | Outpatient (CLI) | payer MEDICARE | END | disposition home or self-care (01) | LOC: CFH 13:02 | PROVIDERS: ATTEND Internal Medicine Cardiovascular Disease | DX: I06.1 Rheumatic aortic insufficiency (principal); I11.9 Hypertensive heart disease without heart failure; I71.2 Thoracic aortic aneurysm, without rupture | CPT/HCPCS: 93306 ==

== ENCOUNTER 2021-07-27 08:55 | Outpatient (CLI) | payer MEDICARE ==
[~2021-07-27 08:55] MED LIST changes: +CALC-43 PO; -FOLI0.8T2 PO; +FOLI0.8T5 PO; +FURO20TA3 PO; -NADO20TA PO; +NADO20TA2 PO; +PHEN100T90 PO; +SPIR100T4 PO
== END 2021-07-27 23:59 | disposition home or self-care (01) ==
LOC: CFH 08:55
PROVIDERS: ATTEND Internal Medicine Cardiovascular Disease
DX: I08.8 Other rheumatic multiple valve diseases (principal); I71.2 Thoracic aortic aneurysm, without rupture; I11.9 Hypertensive heart disease without heart failure
CPT/HCPCS: 93306